=== PATIENT | male | born 2000 | race Asian ===

== ENCOUNTER 2020-02-12 12:38 | Emergency (ER) | payer OTHER ==
[~2020-02-12] VITALS: Ht 167.6 cm; Wt 70.0 kg
[2020-02-12 12:51] VITALS: BP 143/71
== END 2020-02-12 14:01 | disposition home or self-care (01) ==
LOC: EMS 12:46
DX: H61.23 Impacted cerumen, bilateral (principal)
CPT/HCPCS: Z7502

== ENCOUNTER 2022-08-03 08:02 | Emergency (ER) | payer OTHER ==
[~2022-08-03] VITALS: Ht 165.1 cm; Wt 81.0 kg
[2022-08-03 09:05] VITALS: BP 124/77
== END 2022-08-03 10:22 | disposition home or self-care (01) ==
LOC: EMS 08:02
DX: H61.23 Impacted cerumen, bilateral (principal)
CPT/HCPCS: 69210; 99284; Z7502

== ENCOUNTER 2024-01-11 11:32 | Emergency (ER) | payer OTHER ==
[~2024-01-11] VITALS: Ht 167.6 cm; Wt 86.4 kg
[2024-01-11 11:51] VITALS: BP 106/74; PULSE 61; RESP 20; TEMP 98.7; O2SAT 100
[2024-01-11] MEDS: NEOMYCIN/POLYMYXIN B/HYDROCORT 10 ML OTIC SOLUTION AD ONE (15:07)
== END 2024-01-11 15:11 | disposition home or self-care (01) ==
LOC: EMS 11:32
DX: H60.91 Unspecified otitis externa, right ear (principal)
CPT/HCPCS: 99283